=== PATIENT | male | born 1940 | race Caucasian/White ===

== ENCOUNTER 2016-09-27 08:59 | Emergency (ER) | payer MEDICARE, OTHER ==
[2016-09-27 09:13] VITALS: BP 126/67
[2016-09-27] MEDS ORDERED: Fluorescein Sodium TOPICAL* 1 MG TEST OPHTHALMIC ONE (10:22)
[2016-09-27] MEDS ORDERED: Tetracaine 0.5% OPTH.SOL 4 ML* 1 DROP BTL RIGHT EYE ONE (10:22)
--- NOTE | 2016-09-27 10:31 | UC ---
Eye Complaint HPI - HPI Summary HPI Summary: complain to right eye pain irritation that started 3 days ago was mowing grass and afterwards felt like there was something in his eye flushed his eye with saline drops denies pain but feels itchy doesn't wear contact lenses denies discharge from eye denies vision changes - History of Current Complaint Chief Complaint: UCEye Stated Complaint: RIGHT EYE COMPLAINT Time Seen by Provider: 09/27/16 10:22 Hx Obtained From: Patient - Allergies/Home Medications Allergies/Adverse Reactions: Allergies Allergy/AdvReac Type Severity Reaction Status Date / Time Penicillins Allergy Hives Verified 09/27/16 09:14 Home Medications: Home Medications Menthol (Mouth-Throat) [Cough Drops Sugar Free] 5.8 mg MT DAILY 09/27/16 [ History Confirmed 09/27/16] PMH/Surg Hx/FS Hx/Imm Hx Previously Healthy: Yes Endocrine History Of: Denies: Diabetes Cardiovascular History Of: Reports: Cardiac Disorders - bigemeny Denies: Hypertension - Surgical History Surgical History: Yes Surgery Procedure, Year, and Place: Right Retina Surgery, 2011. Bilateral Cataract Extraction, 2012. CHOLECYSTECTOMY, 2002 - Family History Known Family History: Negative: Cardiac Disease, Hypertension, Diabetes - Social History Occupation: Retired Lives: With Family Alcohol Use: Rare Substance Use Type: None Smoking Status (MU): Former Smoker Type: Cigarettes Amount Used/How Often: 1 PPD Length of Time of Smoking/Using Tobacco: Off and On for 20 Years Have You Smoked in the Last Year: No When Did the Patient Quit Smoking/Using Tobacco: 1989 stopped chewing 2 yrs ago Review of Systems Constitutional: Negative Skin: Negative Eyes: Eye Redness ENT: Negative Respiratory: Negative Cardiovascular: Negative Gastrointestinal: Negative Genitourinary: Negative Motor: Negative Neurovascular: Negative Musculoskeletal: Negative Neurological: Negative Psychological: Negative All Other Systems Reviewed And Are Negative: Yes Physical Exam Triage Information Reviewed: Yes Appearance: No Pain Distress, Well-Nourished Vital Signs: Initial Vital Signs Temp 98.8 F 09/27/16 09:03 Pulse 81 09/27/16 09:03 Resp 18 09/27/16 09:03 BP 126/67 09/27/16 09:03 Vital Signs Reviewed: Yes Eyes: Positive: Conjunctiva Inflamed - right eye- lateral side of conjunctiva- small abrasion visulaized in conjunctiva- no foreign objects-veiwed under fluoriscene ENT: Positive: Pharynx normal, TMs normal Neck: Positive: No Lymphadenopathy Respiratory: Positive: Lungs clear, Normal breath sounds, No respiratory distress, No accessory muscle use Cardiovascular: Positive: RRR, No Murmur, Pulses Normal Abdomen Description: Positive: Nontender, Soft Bowel Sounds: Positive: Present Musculoskeletal: Positive: No Edema Neurological Exam: Normal Psychological Exam: Normal Eye Complaint Course/Dx - Course Course Of Treatment: exam completed. no foreign objects seen in right eye- abrasion 1-2mm in lateral conjunctiva. will start antibiotic eyedrops and followup with DR Colvin - Differential Dx/Diagnosis Differential Diagnosis/HQI/PQRI: Conjunctivitis, Corneal Abrasion, Foreign Body Provider Diagnoses: right eye abrasion of conjunctiva Discharge - Discharge Plan Condition: Stable Disposition: HOME Prescriptions: Erythromycin OPTH OINT* 1 applic RIGHT EYE TID #1 ophth.oint Patient Education Materials: Eye Foreign Body (ED), Conjunctivitis (ED) Referrals: Dean EDEN,Ashanti Ragland [Primary Care Provider] - Makayla Colvin MD [Medical Doctor] - Additional Instructions: start using antibiotic eye ointment as directed please call Dr Colvin on 09/29/16 for further evaluation Increase fluids and rest Take acetaminophen or ibuprofen for fever or pain Please review your discharge instructions. If your symptoms do not improve please call your primary care provider or return to urgent care.
[2016-09-27] MEDS ORDERED: BSS OPTH.SOL* BTL OPHTHALMIC ONE (10:35)
== END 2016-09-27 11:01 | disposition home or self-care (01) ==
LOC: UCCORT 08:59
DX: S05.01XA Injury of conjunctiva and corneal abrasion without foreign body, right eye, initial encounter (principal); X58.XXXA Exposure to other specified factors, initial encounter; Y93.9 Activity, unspecified; Y92.9 Unspecified place or not applicable; R00.8 Other abnormalities of heart beat; Z98.42 Cataract extraction status, left eye; Z98.41 Cataract extraction status, right eye; Z90.49 Acquired absence of other specified parts of digestive tract; Z88.0 Allergy status to penicillin; Z87.891 Personal history of nicotine dependence
CPT/HCPCS: 99212; A9270-GY; G0463

== ENCOUNTER 2017-10-06 11:09 | Emergency (ER) | payer MEDICARE, OTHER ==
[2017-10-06 11:38] VITALS: BP 121/78
--- NOTE | 2017-10-06 11:50 | UC ---
Skin Complaint HPI - HPI Summary HPI Summary: Pt has concern for tick bite to forehead. - History of Current Complaint Chief Complaint: UCSkin Time Seen by Provider: 10/06/17 11:40 Stated Complaint: TICK ON HEAD Hx Obtained From: Patient Onset/Duration: Sudden Onset, Lasting Hours Skin Exposure Onset/Duration: Hours Ago Timing: Constant Onset Severity: Mild Current Severity: Mild Pain Intensity: 0 Location: Discrete Aggravating Factor(s): Nothing Alleviating Factor(s): Unknown Associated Signs & Symptoms: Positive: Negative Related History: Insect Bite/Sting - Allergy/Home Medications Allergies/Adverse Reactions: Allergies Allergy/AdvReac Type Severity Reaction Status Date / Time Penicillins Allergy Hives Verified 10/06/17 11:40 Home Medications: Home Medications Aspirin TAB* [Aspirin 325 MG TAB*] 325 mg PO DAILY 10/06/17 [History Confirmed 10/06/17] Simvastatin 20 mg PO QAM 10/06/17 [History Confirmed 10/06/17] Review of Systems Constitutional: Negative Skin: Other - possible tick bite Eyes: Negative ENT: Negative Respiratory: Negative Cardiovascular: Negative Gastrointestinal: Negative Genitourinary: Negative Motor: Negative Neurovascular: Negative Musculoskeletal: Negative Neurological: Negative Psychological: Negative Is Patient Immunocompromised?: No All Other Systems Reviewed And Are Negative: Yes PMH/Surg Hx/FS Hx/Imm Hx Previously Healthy: Yes Endocrine History: Dyslipidemia - Surgical History Surgical History: Yes Surgery Procedure, Year, and Place: Right Retina Surgery, 2011. Bilateral Cataract Extraction, 2012. CHOLECYSTECTOMY, 2002 - Family History Known Family History: Negative: Cardiac Disease, Hypertension, Diabetes - Social History Occupation: Retired Lives: With Family Alcohol Use: Rare Substance Use Type: None Smoking Status (MU): Former Smoker Type: Cigarettes Amount Used/How Often: 1 PPD Length of Time of Smoking/Using Tobacco: Off and On for 20 Years Have You Smoked in the Last Year: No When Did the Patient Quit Smoking/Using Tobacco: 1989 smoking stopped chewing 1991 Physical Exam Triage Information Reviewed: Yes Appearance: Well-Appearing Vital Signs: Initial Vital Signs Temp 98.3 F 10/06/17 11:27 Pulse 70 10/06/17 11:27 Resp 18 10/06/17 11:27 BP 121/78 10/06/17 11:27 Pulse Ox 96 10/06/17 11:27 Vital Signs Reviewed: Yes Eye Exam: Normal Neck exam: Normal Respiratory: Positive: No respiratory distress Musculoskeletal Exam: Normal Neurological Exam: Normal Psychological Exam: Normal Skin Exam: Other - small dried, squished insect on forehead, easily removed. Not erythema at site. Course/Dx - Differential Diagnoses - Skin Complaint Differential Diagnoses: Tick Born Illness - Diagnoses Provider Diagnoses: insect/tick removal Discharge - Sign-Out/Discharge Documenting (check all that apply): Discharge/Admit/Transfer - Discharge Plan Condition: Stable Disposition: HOME Patient Education Materials: Insect Bite or Sting (ED) Referrals: Dean EDEN,Ashanti Ragland [Primary Care Provider] - If Needed - Billing Disposition and Condition Condition: STABLE Disposition: HOME
== END 2017-10-06 12:01 | disposition home or self-care (01) ==
LOC: UCCORT 11:09
DX: S00.86XA Insect bite (nonvenomous) of other part of head, initial encounter (principal); W57.XXXA Bitten or stung by nonvenomous insect and other nonvenomous arthropods, initial encounter; Y93.9 Activity, unspecified; Y92.9 Unspecified place or not applicable; Z88.0 Allergy status to penicillin; Z87.891 Personal history of nicotine dependence
CPT/HCPCS: 99211; G0463

== ENCOUNTER 2017-12-10 07:53 | Emergency (ER) | payer MEDICARE, OTHER ==
[2017-12-10 08:19] VITALS: BP 135/76
--- NOTE | 2017-12-10 08:21 | UC ---
Throat Pain/Nasal Aris HPI - HPI Summary HPI Summary: 77 year old male with sinus concerns. FOR THE PAST 3-4DAYS SINUS CONGESTION AND DRAINAGE. LEFT NECK TENDER LYMPH NODES. LEFT EAR PAIN. OCCASIONAL COUGH. NO FEVER OR CHILLS. No shortness of breath. Sinus pressure and left ear pressure not improved since onset usually gone by now . [ End ] - History of Current Complaint Chief Complaint: UCRespiratory Stated Complaint: CONGESTION LEFT EAR Time Seen by Provider: 12/10/17 08:19 Hx Obtained From: Patient Onset/Duration: Gradual Onset Pain Intensity: 3 Cough: Sputum Appears Associated Signs & Symptoms: Positive: Sinus Discomfort, Nasal Discharge. Negative: Fever - Allergies/Home Medications Allergies/Adverse Reactions: Allergies Allergy/AdvReac Type Severity Reaction Status Date / Time Penicillins Allergy Hives Verified 12/10/17 08:07 Home Medications: Home Medications Otc Nasal [place] PRN 12/10/17 [History] PMH/Surg Hx/FS Hx/Imm Hx Previously Healthy: Yes Endocrine History: Dyslipidemia - Surgical History Surgical History: Yes Surgery Procedure, Year, and Place: Right Retina Surgery, 2011. Cataract Extraction, 2012. CHOLECYSTECTOMY, 2002 - Family History Known Family History: Negative: Cardiac Disease, Hypertension, Diabetes - Social History Occupation: Retired Alcohol Use: Rare Substance Use Type: None Smoking Status (MU): Former Smoker Type: Cigarettes Amount Used/How Often: 1 PPD Length of Time of Smoking/Using Tobacco: Off and On for 20 Years Have You Smoked in the Last Year: No When Did the Patient Quit Smoking/Using Tobacco: 1989 smoking stopped chewing 1991 Review of Systems Constitutional: Fatigue ENT: Ear Ache, Nasal Discharge, Sinus Congestion, Sinus Pain/Tenderness Is Patient Immunocompromised?: No All Other Systems Reviewed And Are Negative: Yes Physical Exam Triage Information Reviewed: Yes Appearance: Well-Appearing, No Pain Distress, Well-Nourished Vital Signs: Initial Vital Signs Temp 97.7 F 12/10/17 08:09 Pulse 60 12/10/17 08:09 Resp 18 12/10/17 08:09 BP 135/76 12/10/17 08:09 Pulse Ox 97 12/10/17 08:09 Vital Signs Reviewed: Yes Eye Exam: Normal ENT Exam: Normal ENT: Positive: Nasal congestion, Nasal drainage, TM dull, Sinus tenderness - left maxillary Dental Exam: Normal Neck exam: Normal Neck: Positive: 1 Respiratory Exam: Normal Cardiovascular Exam: Normal Musculoskeletal Exam: Normal Neurological Exam: Normal Psychological Exam: Normal Skin Exam: Normal Throat Pain/Nasal Course/Dx - Course Course Of Treatment: Treat supportively at this time and advised claritin and flonase in the morning and use nasal saline rinses in the evening. If your symptoms are not improved or worsening in 3-4 days then at that time you may start the antibiotics but be aware there are numerous side effects from antibiotics. - Differential Dx/Diagnosis Differential Diagnosis/HQI/PQRI: Otitis Media, Peritonsillar Abscess, Pharyngitis, Sinusitis, Tonsillitis, URI Provider Diagnoses: Sinusitis Discharge - Sign-Out/Discharge Documenting (check all that apply): Patient Departure - Discharge Plan Condition: Good Disposition: HOME Prescriptions: Cefdinir [Cefdinir 300 MG CAP] 300 mg PO BID 7 Days #14 capsule Fluticasone NASAL SPRAY 50MCG* [Flonase NASAL SPRAY 50MCG*] 2 spray BOTH NARES DAILY #1 btl Patient Education Materials: Sinusitis (ED) Referrals: Ashanti Sauceda [Primary Care Provider] - 4 Days Additional Instructions: Treat supportively at this time and advised claritin and flonase in the morning and use nasal saline rinses in the evening. If your symptoms are not improved or worsening in 3-4 days then at that time you may start the antibiotics but be aware there are numerous side effects from antibiotics. - Billing Disposition and Condition Condition: GOOD Disposition: Home
== END 2017-12-10 08:40 | disposition home or self-care (01) ==
LOC: UCCORT 07:53
DX: J32.9 Chronic sinusitis, unspecified (principal); Z88.0 Allergy status to penicillin
CPT/HCPCS: 99212; G0463

== ENCOUNTER 2018-01-16 16:11 | Emergency (ER) | payer MEDICARE, OTHER ==
[2018-01-16 16:35] VITALS: BP 125/52
[2018-01-16] MEDS ORDERED: Tetracaine 0.5% OPTH.SOL 15ML* BTL RIGHT EYE ONE (16:39)
[2018-01-16] MEDS ORDERED: Fluorescein Sod TOPICAL 0.6* 0.6 MG TEST OPHTHALMIC ONE (16:39)
[2018-01-16] MEDS ORDERED: Tetracaine 0.5% OPTH.SOL 4 ML* 1 DROP BTL ONE (16:42)
--- NOTE | 2018-01-16 17:11 | UC ---
Eye Complaint HPI - HPI Summary HPI Summary: States he was spraying flourescent paint on the ground when a jose d of wind blew it up to his face. He was wearing his eyeglasses and they were tainted with specs of paint. He denies any eye irritation, photophobia, blurred vision, tearing or foreign body sensation but has had several eye surgeries and is here to double check. - History of Current Complaint Chief Complaint: UCEye Stated Complaint: CHEMICAL IN EYES Time Seen by Provider: 01/16/18 16:37 Hx Obtained From: Patient Onset/Duration: Sudden Onset, Lasting Hours Pain Intensity: 0 Location of Injury: Conjunctiva Aggravating Factor(s): Nothing Alleviating Factor(s): Nothing Associated Signs And Symptoms: Positive: Negative - Risk Factors Penetrating Injury Risk Factor: Negative Globe Rupture Risk Factors: Negative Acute Glaucoma Risk Factors: Negative Optic Artery Occlusion Risk Factors: Negative - Allergies/Home Medications Allergies/Adverse Reactions: Allergies Allergy/AdvReac Type Severity Reaction Status Date / Time Penicillins Allergy Hives Verified 01/16/18 16:21 Home Medications: Home Medications Loratadine 10 mg PO DAILY PRN 01/16/18 [History Confirmed 01/16/18] PMH/Surg Hx/FS Hx/Imm Hx Previously Healthy: Yes Endocrine History: Dyslipidemia - Surgical History Surgical History: Yes Surgery Procedure, Year, and Place: Right Retina Surgery, 2011. Right Cataract Extraction, 2012. CHOLECYSTECTOMY, 2002 - Family History Known Family History: Positive: None Negative: Cardiac Disease, Hypertension, Diabetes - Social History Alcohol Use: Rare Substance Use Type: None Smoking Status (MU): Former Smoker Type: Cigarettes Amount Used/How Often: 1 PPD Length of Time of Smoking/Using Tobacco: Off and On for 20 Years Have You Smoked in the Last Year: No When Did the Patient Quit Smoking/Using Tobacco: 1989 smoking stopped chewing 1991 Review of Systems Eyes: Negative All Other Systems Reviewed And Are Negative: Yes Physical Exam Triage Information Reviewed: Yes Appearance: Well-Appearing, No Pain Distress, Well-Nourished Vital Signs: Initial Vital Signs Temp 98 F 01/16/18 16:28 Pulse 93 01/16/18 16:28 Resp 18 01/16/18 16:28 BP 125/52 01/16/18 16:28 Pulse Ox 97 01/16/18 16:28 Vital Signs Reviewed: Yes Eye Exam: Normal - [place], EOM wnl, no discharge, no conjunctival injection, hemorrhage or trauma. Fluorescein exam was normal without any areas of uptake. Upon eyelid eversion, there were no foreign bodies seen. Eyes: Positive: Conjunctiva Clear ENT: Positive: Hearing grossly normal Neck: Positive: Supple Respiratory: Positive: Chest non-tender Cardiovascular: Positive: Pulses Normal, Brisk Capillary Refill Abdomen Description: Positive: Nontender Eye Complaint Course/Dx - Course Course Of Treatment: Patient's exam was normal and did not reveal any specs of paint inside the eyes. Patient is asymptomatic. 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
== END 2018-01-16 17:19 | disposition home or self-care (01) ==
LOC: UCCORT 16:11
DX: T15.92XA Foreign body on external eye, part unspecified, left eye, initial encounter (principal); T15.91XA Foreign body on external eye, part unspecified, right eye, initial encounter; X58.XXXA Exposure to other specified factors, initial encounter; Y93.89 Activity, other specified; Y92.9 Unspecified place or not applicable; Z88.0 Allergy status to penicillin
CPT/HCPCS: 99211; A9270-GY; G0463

== ENCOUNTER 2018-01-22 08:16 | Emergency (ER) | payer MEDICARE, OTHER ==
[2018-01-22 09:12] VITALS: BP 118/55
--- NOTE | 2018-01-22 10:35 | ED ---
Skin Complaint - HPI Summary HPI Summary: 77 yr old exposed to poison lianne a couple of days ago when pruning his [employer]. Rash, blistering and itching to the lower extremities. He has applied calamine lotion - History of Current Complaint Chief Complaint: UCSkin Time Seen by Provider: 01/22/18 10:22 Stated Complaint: SKIN COMPLAINT Pain Intensity: 0 - Allergy/Home Medications Allergies/Adverse Reactions: Allergies Allergy/AdvReac Type Severity Reaction Status Date / Time Sulfa (Sulfonamide Allergy Unknown Hives Verified 01/22/18 09:02 Antibiotics) Penicillins Allergy Hives Verified 01/22/18 09:01 Home Medications: Home Medications Calamine LOTION* 1 applic .SEE ORDER PRN 01/22/18 [History] PMH/Surg Hx/FS Hx/Imm Hx Endocrine/Hematology History: Denies: Hx Diabetes Cardiovascular History: Denies: Hx Hypertension - Cancer History Cancer Type, Location and Year: gerd - Surgical History Surgery Procedure, Year, and Place: Right Retina Surgery, 2011. Right Cataract Extraction, 2012. CHOLECYSTECTOMY, 2002 Infectious Disease History: No Infectious Disease History: Denies: Hx Clostridium Difficile, Hx Hepatitis, Hx Human Immunodeficiency Virus (HIV), Hx Shingles, Hx Tuberculosis, Traveled Outside the [place] in Last 30 Days - Family History Known Family History: Positive: None Negative: Cardiac Disease, Hypertension, Diabetes - Social History Occupation: Retired Alcohol Use: Rare Substance Use Type: Reports: None Smoking Status (MU): Former Smoker Type: Cigarettes Amount Used/How Often: 1 PPD Length of Time of Smoking/Using Tobacco: Off and On for 20 Years Have You Smoked in the Last Year: No Review of Systems Constitutional: Negative Positive: Rash All Other Systems Reviewed And Are Negative: Yes Physical Exam Triage Information Reviewed: Yes Vital Signs On Initial Exam: Initial Vitals Temp Pulse Resp BP Pulse Ox 98 F 64 18 118/55 96 01/22/18 09:04 01/22/18 09:04 01/22/18 09:04 01/22/18 09:04 01/22/18 09:04 Vital Signs Reviewed: Yes Appearance: Positive: Well-Appearing, No Pain Distress Skin: Positive: Other - linear array of blisters and rash lower legs. Head/Face: Positive: Normal Head/Face Inspection Eyes: Positive: EOMI ENT: Positive: Normal ENT inspection Neck: Positive: Nontender Respiratory/Lung Sounds: Positive: Clear to Auscultation, Breath Sounds Present Cardiovascular: Positive: RRR. Negative: Murmur Abdomen Description: Positive: Nontender Musculoskeletal: Positive: Strength/ROM Intact Neurological: Positive: Sensory/Motor Intact, Alert, Oriented to Person Place, Time, CN Intact II-III Psychiatric: Positive: Normal - [place] Coma Scale Best Eye Response: 4 - Spontaneous Best Motor Response: 6 - Obeys Commands Best Verbal Response: 5 - Oriented Coma Scale Total: 15 Diagnostics - Vital Signs Vital Signs Temp Pulse Resp BP Pulse Ox 01/22/18 09:04 98 F 64 18 118/55 96 - Laboratory Lab Statement: Any lab studies that have been ordered have been reviewed, and results considered in the medical decision making process. Course/Dx - Course Course Of Treatment: poison lianne rash lower legs. Rx with medrol dose lino - Diagnoses Provider Diagnoses: Poison ilanne dermatitis Discharge - Sign-Out/Discharge Documenting (check all that apply): Patient Departure All imaging exams completed and their final reports reviewed: No Studies - Discharge Plan Condition: Good Disposition: HOME Prescriptions: methylPREDNISolone [Medrol Dosepak 4 MG*] 4 mg PO .SEE LINO INSTRUCTION #1 pkt Patient Education Materials: Poison Lianne (ED) Referrals: Ashanti Sauceda [Primary Care Provider] - 2 Days - Billing Disposition and Condition Condition: GOOD Disposition: Home
== END 2018-01-22 10:36 | disposition home or self-care (01) ==
LOC: UCCORT 08:16
DX: T63.791A Toxic effect of contact with other venomous plant, accidental (unintentional), initial encounter (principal); L23.7 Allergic contact dermatitis due to plants, except food; Y92.9 Unspecified place or not applicable; Z87.891 Personal history of nicotine dependence
CPT/HCPCS: 99212; G0463

== ENCOUNTER 2018-10-29 14:13 | Emergency (ER) | payer MEDICARE, OTHER ==
[2018-10-29 15:28] LABS: ABS Eosinophils 0.2 10^3/ul (0-0.6); ABS Lymphocytes 1.4 10^3/ul (1.0-4.8); ABS Monocytes 0.6 10^3/ul (0-0.8); ABS Neutrophils 3.4 10^3/ul (1.5-7.7); Eosinophil % 3.9 %; Hematocrit 39 % (42-52); Hemoglobin 13.1 g/dL (14.0-18.0); Mean Corpuscular HGB Conc 33 g/dL (31-36); Mean Corpuscular Hemoglobin 28 pg (27-31); Mean Corpuscular Volume 84 fL (80-94); Mean Platelet Volume 8.7 fL (7.4-10.4); Platelet Count 200 10^3/uL (150-450); Red Blood Count 4.65 10^6 /uL (4.18-5.48); Red Cell Distribution Width 14 % (10-15); White Blood Count 5.6 10^3/uL (3.5-10.8)
[2018-10-29 15:38] LABS: INR 1.09 (0.82-1.09)
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
[2018-10-29 16:07] LABS: ALT 12 U/L (7-52); AST 17 U/L (13-39); Albumin 3.9 g/dL (3.2-5.2); Albumin/Globulin Ratio 1.3 (1-3); Alkaline Phosphatase 35 U/L (34-104); Anion Gap 6 mmol/L (2-11); BUN/Creatinine Ratio 18.8 (8-20); Blood Urea Nitrogen 18 mg/dL (6-24); CO2 Carbon Dioxide 30 mmol/L (22-32); Calcium 9.6 mg/dL (8.6-10.3); Chloride 105 mmol/L (101-111); EGFR African American 92.1 (>60); EGFR Non-African American 76.2 (>60); Globulin 3.1 g/dL (2-4); Glucose 113 mg/dL (70-100); Potassium 4.2 mmol/L (3.5-5.0); Sodium 141 mmol/L (135-145)
[2018-10-29 16:11] LABS: Alcohol < 10 mg/dL (<10)
[2018-10-29 16:12] LABS: TSH (Thyroid Stimulating Horm) 1.47 mcIU/mL (0.34-5.60)
[2018-10-29 18:20] VITALS: BP 137/91
== END 2018-10-29 18:18 | disposition hospice, home (50) ==
LOC: ED 14:13
DX: F03.90 Unspecified dementia, unspecified severity, without behavioral disturbance, psychotic disturbance, mood disturbance, and anxiety (principal); R41.82 Altered mental status, unspecified; Z88.2 Allergy status to sulfonamides; Z88.0 Allergy status to penicillin; F17.210 Nicotine dependence, cigarettes, uncomplicated
CPT/HCPCS: 36415; 70450; 71045; 80053; 80320; 82140; 83605; 84443; 84484; 85025; 85610; 93005; 99283; G0480

== ENCOUNTER 2019-01-24 16:54 | Emergency (ER) | payer MEDICARE, OTHER ==
[2019-01-24] MEDS ORDERED: Lidocaine 1% MPF ** 5 ML VIAL INJ ONE (17:33)
[2019-01-24 17:37] VITALS: BP 136/77
--- NOTE | 2019-01-24 17:39 | UC ---
Skin Complaint HPI - HPI Summary HPI Summary: 78YO male c/o laceration left 5th finger while cutting a tree branch JPTA. Bleeding stopped with direct pressure. No loss of strength, ROM or sensation. Reports last Tetanus shot 1 year ago. - History of Current Complaint Time Seen by Provider: 01/24/19 17:31 Stated Complaint: HAND LACERATION - Allergy/Home Medications Allergies/Adverse Reactions: Allergies Allergy/AdvReac Type Severity Reaction Status Date / Time Sulfa (Sulfonamide Allergy Unknown Hives Verified 01/24/19 17:38 Antibiotics) Penicillins Allergy Hives Verified 01/24/19 17:38 PMH/Surg Hx/FS Hx/Imm Hx Previously Healthy: Yes Endocrine History: Dyslipidemia - Surgical History Surgical History: Yes Surgery Procedure, Year, and Place: Right Retina Surgery, 2011. Right Cataract Extraction, 2012. CHOLECYSTECTOMY, 2002 - Family History Known Family History: Negative: Cardiac Disease, Hypertension, Diabetes - Social History Alcohol Use: Rare Substance Use Type: None Smoking Status (MU): Former Smoker Type: Cigarettes Amount Used/How Often: 1 PPD Length of Time of Smoking/Using Tobacco: Off and On for 20 Years Have You Smoked in the Last Year: No When Did the Patient Quit Smoking/Using Tobacco: 1989 smoking stopped chewing 1991 Review of Systems All Other Systems Reviewed And Are Negative: Yes Constitutional: Positive: Negative Skin: Positive: Other - see hpi Eyes: Positive: Negative ENT: Positive: Negative Respiratory: Positive: Negative Cardiovascular: Positive: Negative Gastrointestinal: Positive: Negative Motor: Positive: Negative Neurovascular: Positive: Negative Musculoskeletal: Positive: Negative Neurological: Positive: Negative Psychological: Positive: Negative Is Patient Immunocompromised?: No Physical Exam Triage Information Reviewed: Yes Appearance: Well-Appearing, No Pain Distress, Well-Nourished Vital Signs Reviewed: Yes Eye Exam: Normal Eyes: Positive: Conjunctiva Clear Neck: Positive: Supple Respiratory: Positive: No respiratory distress Musculoskeletal: Positive: Strength Intact, ROM Intact Neurological: Positive: Alert, Muscle Tone Normal Psychological: Positive: Age Appropriate Behavior Skin: Positive: Other - 2cm linear sc laceration left 5th finger over the PIP. No active bleeding. Strenght and senastion NL. Nl cap refill. Laceration Repair - Laceration Repair 1 Procedure Summary: left 5th finger Description: Linear Laceration Size After Repair: Length (cm) - 2cm Modified For Repair: No Type Injection: Local Anesthesia Used: 1.0% Lido Irrigation With Pressure Irrigation Device: Yes Closure Material: Sutures Closure Method: Single Layer Suture Of: Skin - #5 Suture Type: Prolene - 5-0 Course/Dx - Diagnoses Provider Diagnosis: Laceration of left little finger Discharge ED - Sign-Out/Discharge Documenting (check all that apply): Patient Departure All imaging exams completed and their final reports reviewed: No Studies - Discharge Plan Condition: Stable Disposition: HOME Prescriptions: Clindamycin Cap(NF) [Clindamycin Cap 300 mg Cap(NF)] 300 mg PO TID #19 cap Patient Education Materials: Care For Your Stitches (ED), Finger Laceration (ED ) Referrals: Ashanti Sauceda [Primary Care Provider] - Mary Tolentino MD [Medical Doctor] - Additional Instructions: FOLLOW UP WITH YOUR DOCTOR OR RETURN HERE IN 8-10 DAYS FOR SUTURE REMOVAL. FOLLOW UP WITH THE ORTHOPEDIC HAND SPECIALIST IF YOU HAVE ANY LOSS OF SENSATION , STRENGTH OR RANGE OF MOTION OF THE FINGER IF NOT COMPLETELY IMPROVED. GET REEVALUATED SOONER IF YOUR CONDITION WORSENS OR ANY QUESTIONS OR CONCERNS. - Billing Disposition and Condition Condition: STABLE Disposition: Home
[2019-01-24] MEDS ORDERED: Clindamycin CAP* 150 MG PO ONE (18:13)
== END 2019-01-24 18:40 | disposition home or self-care (01) ==
LOC: UCCORT 16:54
DX: S61.217A Laceration without foreign body of left little finger without damage to nail, initial encounter (principal); W45.8XXA Other foreign body or object entering through skin, initial encounter; Y93.89 Activity, other specified; Y92.9 Unspecified place or not applicable; Z88.0 Allergy status to penicillin; Z88.2 Allergy status to sulfonamides; Z87.891 Personal history of nicotine dependence
CPT/HCPCS: 12001; 99212; A9270-GY; G0463

== ENCOUNTER 2019-02-01 10:36 | Emergency (ER) | payer MEDICARE, OTHER ==
[2019-02-01 10:48] VITALS: BP 132/63
--- NOTE | 2019-02-01 11:12 | UC ---
HPI Wound/Suture Re-check - HPI Summary HPI Summary: here for suture removal s/p laceration to his left 5th finger 8 days ago repair was done here wound is healing well, no redness, no swelling, no bleeding or discharge - History Of Current Complaint Chief Complaint: UCLaceration Stated Complaint: SUTURE REMOVAL (PUT IN HERE) Time Seen by Provider: 02/01/19 10:44 Hx Obtained From: Patient Onset/Duration: Sudden Onset, Lasting Days - 8, Still Present Surgical Site: left 5th finger Severity: Moderate Pain Intensity: 0 Procedure Type: suture removal Surgery Date: 01/24/19 - Allergies/Home Medications Allergies/Adverse Reactions: Allergies Allergy/AdvReac Type Severity Reaction Status Date / Time Sulfa (Sulfonamide Allergy Unknown Hives Verified 02/01/19 10:42 Antibiotics) Penicillins Allergy Hives Verified 02/01/19 10:42 PMH/Surg Hx/FS Hx/Imm Hx - Additional Past Medical History Additional PMH: Dyslipidemia, Fluid Retention, GERD - Surgical History Surgical History: Yes Surgery Procedure, Year, and Place: Right Retina Surgery, 2011. Right Cataract Extraction, 2012. CHOLECYSTECTOMY, 2002 - Family History Known Family History: Positive: Non-Contributory Negative: Cardiac Disease, Hypertension, Diabetes - Social History Alcohol Use: Rare Substance Use Type: None Smoking Status (MU): Former Smoker Type: Cigarettes Amount Used/How Often: 1 PPD Length of Time of Smoking/Using Tobacco: Off and On for 20 Years Have You Smoked in the Last Year: No When Did the Patient Quit Smoking/Using Tobacco: 1989 smoking stopped chewing 1991 Review of Systems All Other Systems Reviewed And Are Negative: Yes Constitutional: Positive: Negative Skin: Positive: Negative Eyes: Positive: Negative ENT: Positive: Negative Is Patient Immunocompromised?: No Physical Exam Triage Information Reviewed: Yes Appearance: Well-Appearing, No Pain Distress, Well-Nourished Vital Signs: Initial Vital Signs Temp 97.5 F 02/01/19 10:41 Pulse 63 02/01/19 10:41 Resp 16 02/01/19 10:41 BP 132/63 02/01/19 10:41 Pulse Ox 98 02/01/19 10:41 Vital Signs Reviewed: Yes Eye Exam: Normal Eyes: Positive: Conjunctiva Clear ENT: Positive: Normal ENT inspection, Hearing grossly normal, Pharynx normal Neck exam: Normal Cardiovascular: Positive: RRR, No Murmur, Pulses Normal Skin: Positive: Other - laceration left 5th finger 1.5 cm 5 suture intact, healing well, no swelling, no bleeding, no erythema or discharge suture were removed Course/Dx - Diagnosis Provider Diagnosis: Visit for suture removal Discharge ED - Sign-Out/Discharge Documenting (check all that apply): Patient Departure All imaging exams completed and their final reports reviewed: No Studies - Discharge Plan Condition: Stable Disposition: HOME Patient Education Materials: Stitches Removal (ED) Referrals: Dean EDEN,Ashanti Ragland [Primary Care Provider] - If Needed - Billing Disposition and Condition Condition: STABLE Disposition: Home
== END 2019-02-01 11:14 | disposition home or self-care (01) ==
LOC: UCCORT 10:36
DX: S61.217D Laceration without foreign body of left little finger without damage to nail, subsequent encounter (principal); W45.8XXD Other foreign body or object entering through skin, subsequent encounter; Z88.0 Allergy status to penicillin; Z88.2 Allergy status to sulfonamides; Z87.891 Personal history of nicotine dependence